=== PATIENT | male | born 1955 | race Caucasian/White ===

== ENCOUNTER → 2019-12-29 | Outpatient (CLI) | payer MEDICARE ==
[~2019-12-29] MED LIST: OMNIPAQUE 350 MG/ML, 100ML BOTTLE ONE
== END | disposition home or self-care (01) ==
LOC: CFH 12:45
PROVIDERS: ATTEND Specialist
DX: C34.32 Malignant neoplasm of lower lobe, left bronchus or lung (principal); I26.99 Other pulmonary embolism without acute cor pulmonale; J84.10 Pulmonary fibrosis, unspecified; N28.1 Cyst of kidney, acquired
CPT/HCPCS: 71260; 74160; Q9967